=== PATIENT | male | born 1955 | race Caucasian/White ===

== ENCOUNTER → 2017-03-10 | Outpatient (CLI) | payer OTHER ==
[~2017-03-10] MED LIST: ADULT LOW DOSE81 M1 PO; CENTRUM SILVER1 EAC1 PO; COLACE100 MG PO; ENDOCET 5-3251 EACH PO; TARKA 4/2401 TABLET PO
== END | disposition home or self-care (01) ==
LOC: NUC 10:31
DX: M47.892 Other spondylosis, cervical region (principal); M19.022 Primary osteoarthritis, left elbow; M19.021 Primary osteoarthritis, right elbow; M19.032 Primary osteoarthritis, left wrist; M19.031 Primary osteoarthritis, right wrist; M19.042 Primary osteoarthritis, left hand; M19.041 Primary osteoarthritis, right hand; M19.072 Primary osteoarthritis, left ankle and foot; M19.071 Primary osteoarthritis, right ankle and foot; M17.11 Unilateral primary osteoarthritis, right knee; R93.7 Abnormal findings on diagnostic imaging of other parts of musculoskeletal system; Z90.79 Acquired absence of other genital organ(s); R97.20 Elevated prostate specific antigen [PSA]
CPT/HCPCS: 78306; A9503